=== PATIENT | male | born 1960 | race Caucasian/White ===

== ENCOUNTER 2016-11-30 09:30 | Day surgery (SDC) | payer OTHER ==
[~2016-11-30] VITALS: Ht 188 cm; Wt 115.2 kg
[2016-11-30] VITALS (8 sets, daily range): BP systolic 138–154; BP diastolic 69–82; PULSE 79–94; RESP 9–17; O2SAT 92–98
[~2016-11-30 09:30] MED LIST: BUPR300T51 PO; CIPR-198 PO; LISI-567 PO; Lactated Ringer's 1,000 ML IV SCH; METF500T4 PO; ONDA-53 PO; OXYC1TAB24 PO; PROM25TA14 PO; RABE20TA5 PO; TADA5TAB2 PO
[2016-11-30] MEDS ORDERED: Propofol 10,000 mCg/mL 20 mL Inj ONE (09:31)
[2016-11-30] MEDS ORDERED: fentaNYL-PF 50 mCg/mL 2 mL Inj ONE (09:31)
[2016-11-30] MEDS ORDERED: Lactated Ringer's 1,000 ML IV ONE (10:43)
--- NOTE | 2016-11-30 10:47 | DRSVH ---
PROCEDURE: X-RAY KUB ([id number]) INDICATIONS: LEFT KIDNEY STONE TECHNIQUE: One view of the abdomen acquired. COMPARISON: Outside Film, CT, CT ABD PELVIS WO CON, 11/15/2016, 16:55. [facility], CR, XR KUB, 11/17/2016, 8:51. FINDINGS: Surgical changes and devices: None. Bowel: Bowel gas pattern is normal. Soft tissues: There is a 1 cm calcification projecting just below the left L3 transverse process, con sistent with a mid left ureter stone. Compared to the last exam, it has slightly advanced more distal ly. Visualized solid organ contours appear normal in size. Bones: No suspicious bony lesions. IMPRESSION: The 1 cm left ureteral stone has slightly advanced more distally. Dictated by: Donnie Lawton M.D. on 11/30/2016 at 10:43 Approved by: Donnie Lawton M.D. on 11/30/2016 at 10:46
--- NOTE | 2016-11-30 11:15 | PCM.HPANE ---
Patient Data Surgeon Admitting Provider: Attending Provider:Alexus Covington MD Primary Care Physician:Other,Physician Other Provider:Thelma Monzon Anesthesia Reason for Visit Left Kidney Stone Ht/WT & BMI Height (Feet): 6 Height (Inches): 2.00 Weight (Kilograms): 115.210 Body Mass Index 32.00 Allergies Coded Allergies: naproxen (Verified Allergy, Unknown, 11/28/16) tamsulosin (Verified Allergy, Unknown, 11/28/16) Past Anesthesia History Anesthesia History: Denies:: Abnormal Airway, Anesthesia Reactions, Difficult Intubation, Fam Anesthesia Reaction (possible father- "never the same" after surgery), Fam Malignant Hypertherm, Malignant Hyperthermia Diabetes History Hx Diabetes?: Yes (TYPE II) Type of Diabetes: Type II Glycemic Control: Oral Medication Current Bedside Blood Glucose: 109 MRSA MRSA: No Medications Hypertension Medication: Yes Home Meds Incl Beta Renzo: No Reported Medications Bupropion ER (Wellbutrin XL)300 Mg Tab.[id number] Mg PO DAILY Ref 0 11/28/16 Promethazine 25 Mg [id number] Mg PO Q6H PRN For Nausea Ref 0 11/28/16 oxyCODONE-Acetaminophen 5-325 mg 1 Each Tablet1-2 Tab PO Q6H PRN For Pain Ref 0 11/28/16 Ondansetron 4 Mg Tablet4-8 Mg PO Q8H PRN For Nausea 11/28/16 Metformin 500 Mg [id number] Mg PO QPM Ref 0 11/28/16 Metformin 500 Mg [id number] Mg PO QAM Ref 0 11/28/16 Lisinopril 20 Mg [id number] Mg PO DAILY 30 Days Ref 0 11/28/16 Tadalafil (Cialis)5 Mg Tablet5 Mg PO PRN PRN erectile dysfunction Ref 0 As directed by physician. 11/28/[address] (Aciphex)20 Mg [id number] Mg PO DAILY Ref 0 11/28/16 Discontinued Reported Medications Ciprofloxacin 500 Mg [id number] Mg PO BID 11/28/16 History History of ENT Problems?: No HEENT History: Positive for:: Hearing Problem (minor) Denies:: Abnormal Airway Cataracts Difficult Intubation Dysphagia Glaucoma Sinus Problem TMJ Denture Type: None Teeth Condition: Within Normal Limits Other HEENT Pertinent History: dental implants Hx of Heart Problems?: Yes Cardiovascular History: Positive for:: Hypertension Denies:: AICD Abdominal Aortic Aneurism Atrial Fibrillation Cardiac Surgery Chest Pain Congestive Heart Failure Coronary Artery Disease Edema Heart Murmur Irregular Heartbeat Pacemaker Peripheral Vascular Rheumatic Fever Thrombophlebitis Valvular Heart Disease Hx of Respiratory Problem?: Yes Respiratory History: Positive for:: Use of C-PAP Machine Denies:: Asthma COPD Emphysema Oxygen Administration Pneumonia Tuberculosis Use of Inhalers / NEBS Hx Neurologic Problems?: No Neurological History: Denies:: CVA Dementia Dizziness Headaches Multiple Sclerosis Parkinson's Disease Seizures TIA Hx of GI Problems?: Yes Gastrointestinal History: Positive for:: Gastroesphageal Reflux Heartburn Denies:: Cirrhosis Diverticulitis Gall Bladder Disease Hepatitis Hiatal Hernia Liver Disease Hx of Problems?: Yes Genitourinary History: Positive for:: Kidney Stones (left kidney stone current admission problem) Denies:: Urinary Tract Infection Other Pertinent History: prior hx stones, passed spontaneously Male Hx: Denies:: Prostate Problems (slightly enlarged) Scrotal Mass Testicular Surgery Skin History: Denies:: History Skin Disorders? Pressure Ulcers Hx Musculoskeletal Problems?: No Musculoskeletal History: Denies:: Back Injury (chiropractor occasional) Fibromyalgia Joint Replacement Musculoskeletal Trauma Myasthenia Gravis Osteoarthritis Rheumatoid Arthritis Systemic Lupus Hx of Psycho/Social Problems?: Yes Psycho Social History: Positive for:: Hx Depression Hx Surgeries?: Yes (hernia,) Hx Any Other Health Problems?: Yes Other History: Denies:: Cancer Thyroid Disease History Blood Transfusions: Positive for:: Accept Blood Products? Denies:: Blood Transfusions Hx Diabetes: Yes (TYPE II)Bedside Blood Glucose: 109 Hx Alcohol Use: NoHx Substance Use: NoHave You Smoked inLast 12 mo: No Stop/Bang P-Blood Pressure: treated: Yes B- Body Mass Index > 35 kg/m2: No A- Age over 50: Yes N- Neck Large Circumference: No G- Gender Male: Yes Risk Assessment Category Category 1A: Patient has history of documented sleep apnea, and HAS NOT received any narcotic, sedative or anesthesia administration during this stay. Category 1B: Patient has history of documented sleep apnea, and HAS received any narcotic , sedative or anesthesia administration during this stay Category 2: Patient has SUSPECTED Obstructive Sleep Apnea, and HAS received any narcotic , sedative or anesthesia administration during this stay. Category 3: Patient has SUSPECTED Obstructive Sleep Apnea and HAS NOT received narcotic, sedative or anesthesia administration during this stay. Category 4: Outpatient in Procedural Areas with known sleep apnea or who screen positive for High Risk via the STOP/BANG questionnaire. Exam Exam Vital Signs Vital Signs Date Time Temp Pulse Resp B/P Pulse Ox O2 Delivery O2 Flow Rate FiO2 11/30/16 10:25 36.5 94 17 154/78 98 Room Air General Appearance: Alert, Oriented X3, Cooperative, No Acute Distress HEENT/AIRWAY: MP 2 Lungs: Clear to Auscultation, Normal Air Movement Heart: Exam Unremarkable, Regular Rate/Rhythm, No Murmurs/Rubs/Gallops Meds/Labs/Diagnostics Admission Meds Current Medications Lactated Ringer's (Lr) 1,000 ml @ ud STK-MED ONCE IV Last administered on 11/30t 10:43; Start 11/30/16 at 10:43; Stop 11/30/16 at 10:44; Status DC Bedside Blood Glucose: 109 Plan Impression Patient chart reviewed, patient interviewed and anesthestic plan with risks, benefits, and alternatives discussed, and informed consent obtained. ASA Physical Status: ASA2 Mod Systemic Disease Anesthetic Plan: GA Bene/Risks/Altern/Consents: Yes HP Complete Prior to Induction: Yes Rishabh Diaz MD Nov 30, 2016 10:51
[2016-11-30] MEDS ORDERED: Lactated Ringer's 500 ML IV PRN (11:37)
[2016-11-30] MEDS ORDERED: Lactated Ringer's 1,000 ML IV SCH (11:37)
[2016-11-30] MEDS ORDERED: Atropine 0.4 mg/mL Inj IVPUSH PRN (11:40)
[2016-11-30] MEDS ORDERED: HYDROmorphone 1 mg/mL Inj IVPUSH PRN (11:40)
[2016-11-30] MEDS ORDERED: Dexamethasone 4 mg/mL Inj IVPUSH PRN (11:40)
[2016-11-30] MEDS ORDERED: Ondansetron 2 mg/mL 2 mL Inj IVPUSH PRN (11:40)
[2016-11-30] MEDS ORDERED: MetoCLOpramide 5 mg/mL 2 mL Inj IVPUSH PRN (11:40)
[2016-11-30] MEDS ORDERED: Phenylephrine 10,000 mCg/mL Inj IVPUSH PRN (11:40)
[2016-11-30] MEDS ORDERED: EPHEDrine Sulfate 50 mg/mL Inj IVPUSH PRN (11:40)
[2016-11-30] MEDS ORDERED: fentaNYL-PF 50 mCg/mL 2 mL Inj IVPUSH PRN (11:40)
[2016-11-30] MEDS ORDERED: HYDROcodone-APAP 5-325 mg Tablet PO PRN (11:55)
--- NOTE | 2016-11-30 13:07 | PCM.ANEP1 ---
Post Anesthesia Phase 1 PACU Phase 1 Assessment Vital Signs Vital Signs Date Time Temp Pulse Resp B/P Pulse Ox O2 Delivery O2 Flow Rate FiO2 11/30/16 13:00 36.4 79 16 153/74 96 Room Air 11/30/16 12:43 80 16 142/69 96 Room Air 11/30/16 12:35 36.3 85 15 150/81 94 Room Air 11/30/16 12:30 85 12 142/75 94 Room Air 11/30/16 12:25 85 9 142/80 93 Room Air 11/30/16 12:20 86 10 138/77 94 Room Air 11/30/16 12:15 36.4 89 12 145/82 95 Room Air 11/30/16 10:25 36.5 94 17 154/78 98 Room Air Anesthetic Administered: GA Level of Alertness: Awake, talking LIMON's with Equal Strength: Yes Pain: No Nausea or Vomiting: No Oxygen Delivery: Room Air Lungs: Clear to Auscultation, Normal Air Movement Dermatome Level: Full Sensation Complications: No Follow up Care: No Patient Instructions Provided: Yes Rishabh Diaz MD Nov 30, 2016 13:07
--- NOTE | 2016-11-30 22:25 | OP ---
[address] [address] OPERATIVE REPORT PATIENT: MILVIA CHAUHAN : 1960 MR#: [id number] ADMIT: 11/30/2016 JOB ID: [id number] DATE OF SURGERY: 11/30/2016 PREOPERATIVE DIAGNOSIS(ES): Left ureteral stone. POSTOPERATIVE DIAGNOSIS(ES): Left ureteral stone. PROCEDURE PERFORMED: Left extracorporeal shock wave lithotripsy. SURGEON: Alexus Covington MD. KITCHEN SUPERVISOR: None. FINDINGS: Approximately 8 mm stone at the level of L3-L4. ANESTHESIA: General. ESTIMATED BLOOD LOSS: None. DRAINS: None. SPECIMENS: None. COMPLICATIONS: None. INDICATION FOR PROCEDURE: The patient is a 56-year-old gentleman with a left ureteral stone. He wishes to undergo shock wave lithotripsy. DESCRIPTION OF PROCEDURE: After informed consent was obtained, the patient was taken to the operating room. A time-out was performed, identifying correct patient, surgical site, and procedure. General anesthesia was smoothly induced. He was given intravenous antibiotics just prior to the start of the procedure. He was placed in the supine position and all pressure points were identified and appropriately padded. He was positioned over the lithotripter device. Ultimately, the lithotripter was placed anteriorly in order to gain access to the stones in the cross hairs of the device. The stone was subjected to a total of 3000 shocks. There was good hazing. Given the good result no stent was placed. The patient\ was reversed from general anesthesia and taken to PACU in stable condition. ELVIA
== END 2016-11-30 23:59 | disposition home or self-care (01) ==
LOC: SAS 09:30
PROVIDERS: ATTEND Urology
DX: N20.1 Calculus of ureter (principal); E11.9 Type 2 diabetes mellitus without complications; I10 Essential (primary) hypertension; K21.9 Gastro-esophageal reflux disease without esophagitis; F32.9 Major depressive disorder, single episode, unspecified; Z79.84 Long term (current) use of oral hypoglycemic drugs
CPT/HCPCS: 50590; 74000; J2405; J3010; J7120